=== PATIENT | female | born 1930 ===

== ENCOUNTER 2017-04-24 10:53 | Emergency (ER) | payer OTHER ==
[2017-04-24 11:26] VITALS: TEMP 99.3
[2017-04-24 12:57] LABS: BASO % 0.4 % (0.0-2.0); EOS # 0.2 K/uL (0.0-0.7); EOS % 1.4 % (0.0-4.0); HEMOGLOBIN 13.5 g/dL (11.0-16.0); LYMPH # 2.4 K/uL (1.0-4.3); LYMPH % 20.8 % (20.0-40.0); MEAN CELL VOLUME 91.9 fL (81.0-99.0); MEAN CORPUSCULAR HEMOGLOBIN 32.3 pg (27.0-31.0); MEAN CORPUSCULAR HGB CONC 35.1 g/dL (33.0-37.0); MEAN PLATELET VOLUME 7.9 fL (7.2-11.7); MONO # 1.2 K/uL (0.0-0.8); MONO % 10.7 % (0.0-10.0); NEUT # 7.7 K/uL (1.8-7.0); NEUT % 66.7 % (50.0-75.0); RBC 4.18 Mil/uL (3.80-5.20); RED CELL DISTRIBUTION WIDTH 13.6 % (11.5-14.5); WHITE BLOOD COUNT 11.5 K/uL (4.8-10.8)
--- NOTE | 2017-04-24 13:18 | RAD ---
HISTORY: SOB COMPARISON: None available. TECHNIQUE: Chest, one view. FINDINGS: Examination limited by habitus. LUNGS: Prominent interstitial markings may be chronic. Tiny bilateral nodular densities, nonspecific. Scattered probable calcified granulomas. Please note that chest x-ray has limited sensitivity for the detection of pulmonary masses. PLEURA: No significant pleural effusion identified. No definite pneumothorax . CARDIOVASCULAR: Cardiomegaly. Ectatic aorta. OSSEOUS STRUCTURES: Degenerative changes. VISUALIZED UPPER ABDOMEN: Unremarkable. OTHER FINDINGS: None. IMPRESSION: Prominent interstitial markings may be chronic. Tiny bilateral nodular densities, nonspecific. Scattered probable calcified granulomas. Cardiomegaly. Ectatic aorta.
--- NOTE | 2017-04-24 13:45 | C.PDOC ---
History Of Present Illness 87 yr old female presents to the ER with complaints of body aches, nonproductive cough, pleuritic chest pain and generalized weakness for 1 week. She denies fever, SOB, nausea, vomiting, abdominal pain, dysuria/hematuria, headache. Time Seen by Provider: 04/24/17 11:52 Chief Complaint (Nursing): Cough, Cold, Congestion History Per: Patient History/Exam Limitations: no limitations Onset/Duration Of Symptoms: Days (1 week) Past Medical History Reviewed: Historical Data, Nursing Documentation, Vital Signs Vital Signs: Last Vital Signs Temp 99.3 F 04/24/17 11:24 Pulse 69 04/24/17 15:18 Resp 18 04/24/17 15:18 BP 155/78 H 04/24/17 15:18 Pulse Ox 100 05/01/17 01:33 - Medical History PMH: HTN Family History: States: No Known Family Hx - Social History Hx Alcohol Use: No Hx Substance Use: No - Immunization History Hx Tetanus Toxoid Vaccination: Yes Hx Influenza Vaccination: No Hx Pneumococcal Vaccination: No Review Of Systems Except As Marked, All Systems Reviewed And Found Negative. Constitutional: Positive for: Weakness (generalized), Other ((+) body aches). Negative for: Fever Cardiovascular: Positive for: Chest Pain (pleuritic). Negative for: Palpitations Respiratory: Positive for: Cough (non productive). Negative for: Shortness of Breath Gastrointestinal: Negative for: Nausea, Vomiting, Abdominal Pain, Diarrhea Genitourinary: Negative for: Dysuria Neurological: Negative for: Headache Physical Exam - Physical Exam Appears: Well, Non-toxic, No Acute Distress, Other ((+) speaking in full sentences) Skin: Warm, Dry, No Rash Oral Mucosa: Moist Throat: Normal, No Erythema, No Exudate, Drooling Neck: Normal, Normal ROM, No Midline Cervical Tenderness, No Paracervical Tenderness, No Step Off Deformity, Supple Cardiovascular: Rhythm Regular Respiratory: Normal Breath Sounds, No Rales, No Rhonchi, No Wheezing Gastrointestinal/Abdominal: Normal Exam, Bowel Sounds, Soft, No Tenderness Extremity: Normal ROM, No Swelling Neurological/Psych: Oriented x3 ED Course And Treatment - Laboratory Results Result Diagrams: 04/24/17 12:50 04/24/17 13:55 O2 Sat by Pulse Oximetry: 100 (RA) Pulse Ox Interpretation: Normal - Radiology CXR: Interpreted by Me, Viewed By Me CXR Interpretation: Yes: No Acute Disease. No: Infiltrates - Other Rad CXR X-Ray: Viewed By Me, Read By Radiologist Interpretation: HISTORY: SOB. COMPARISON: None available. TECHNIQUE: Chest , one view. FINDINGS: Examination limited by habitus. LUNGS: Prominent interstitial markings may be chronic. Tiny bilateral nodular densities, nonspecific. Scattered probable calcified granulomas. Please note that chest x- ray has limited sensitivity for the detection of pulmonary masses. PLEURA: No significant pleural effusion identified. No definite pneumothorax . CARDIOVASCULAR: Cardiomegaly. Ectatic aorta. OSSEOUS STRUCTURES: Degenerative changes. VISUALIZED UPPER ABDOMEN: Unremarkable. OTHER FINDINGS : None. IMPRESSION: Prominent interstitial markings may be chronic. Tiny bilateral nodular densities, nonspecific. Scattered probable calcified granulomas. Cardiomegaly. Ectatic aorta. Progress Note: PLAN: Blood work, CXR ordered and reviewed. Reevaluation Time: 15:15 Reassessment Condition: Improved (Patient reassessed, is resting comfortably, in no distress. She states she feels better, and would like to be discharged home. Blood work, CXR WNL. Patient is well appearing, and comfortable being discharged home. Rxs for Azithromycin and Tessalon given, and patient instructed to follow up with PMD in 1-2 days. She understands she should return to ED immediately if symptoms worsen.) Disposition - Disposition Referrals: [facility] [Outside] Disposition: HOME/ ROUTINE Disposition Time: 15:15 Condition: STABLE Additional Instructions: SEGUIMIENTO CON ALBERTO MDICO / CLNICA EN 1-2 SOSA USE MEDICAMENTOS SEGN LO INDICADO REGRESE AL ROSI DE EMERGENCIA SI LOS SNTOMAS EMPEORAN FOLLOW UP WITH YOUR DOCTOR/CLINIC IN 1-2 DAYS USE MEDICATIONS DIRECTED RETURN TO EMERGENCY ROOM IF SYMPTOMS WORSEN Prescriptions: Azithromycin [Zithromax] 250 mg PO DAILY #6 tab Benzonatate [Tessalon Perles] 100 mg PO BID PRN #15 sgl PRN Reason: Cough Instructions: Acute Bronchitis (ED) Forms: [facility] (Syriac) Print Language: ROMANIAN - Clinical Impression Clinical Impression: Bronchitis - Scribe Statement The provider has reviewed the documentation as recorded by the Scribe Henny Fung Provider Attestation: All medical record entries made by the Scribe were at my direction and personally dictated by me. I have reviewed the chart and agree that the record accurately reflects my personal performance of the history, physical exam, medical decision making, and the department course for this patient. I have also personally directed, reviewed, and agree with the discharge instructions and disposition.
[2017-04-24 14:13] LABS: ALB/GLOB RATIO 1.1 (1.0-2.1); ALBUMIN 4.2 g/dL (3.5-5.0); ALT/SGPT 25 U/L (9-52); AST/SGOT 26 U/L (14-36); BLOOD UREA NITROGEN 12 mg/dL (7-17); CALCIUM 9.5 mg/dl (8.6-10.4); GFR AFRICAN-AMERICAN > 60; GFR NON-AFRICAN AMERICAN > 60
[2017-04-24 14:25] LABS: CK-MB 0.45 ng/mL (0.0-3.38)
[2017-04-24 15:19] VITALS: BP 155/78; PULSE 69; RESP 18
[2017-05-01 01:31] VITALS: O2SAT 100
== END 2017-04-24 15:34 | disposition home or self-care (01) ==
LOC: C.ER 10:53
DX: J40 Bronchitis, not specified as acute or chronic (principal)